=== PATIENT | female | born 1960 | race African-American/Black ===

== ENCOUNTER 2016-05-28 02:49 | Emergency (ER) | payer MEDICAID ==
[~2016-05-28] VITALS: Ht 167.6 cm; Wt 104.3 kg
[2016-05-28 08:14] VITALS: BP 124/80
[2016-05-28] MEDS ORDERED: KETOROLAC TROMETH 60MG/2ML VIAL IM ONE (08:30)
== END 2016-05-28 09:17 | disposition home or self-care (01) ==
LOC: ER 02:55
DX: S39.012A Strain of muscle, fascia and tendon of lower back, initial encounter (principal); S00.83XA Contusion of other part of head, initial encounter; F17.210 Nicotine dependence, cigarettes, uncomplicated; V43.62XA Car passenger injured in collision with other type car in traffic accident, initial encounter; Y93.89 Activity, other specified; Y99.9 Unspecified external cause status; Y92.89 Other specified places as the place of occurrence of the external cause
CPT/HCPCS: 70486; 72131; 96372; 99284; J1885

== ENCOUNTER 2023-06-18 12:07 | Emergency (ER) | payer MEDICAID ==
[~2023-06-18] VITALS: Ht 167.6 cm; Wt 104.5 kg
[2023-06-18 12:10] VITALS: BP 140/82; RESP 18; O2SAT 95
[2023-06-18 12:19] VITALS: PULSE 82
[2023-06-18 12:46] LABS: Basophils # (auto) 0 10 ^3/uL (0-0.2); Basophils % (auto) 0.7 % (0.0-2.0); Eosinophils # (auto) 0 10 ^3/uL (0-0.8); Hematocrit 40.3 % (36.0-46.0); Hemoglobin 13.3 g/dL (12.2-16.2); Lymphocytes # (auto) 1.9 10 ^3/uL (0.4-5.4); Lymphocytes % (auto) 39.7 % (10.0-50.0); Mean Corpuscular Hemoglobin 31.1 pg (28.0-32.0); Mean Corpuscular Hgb Conc. 32.9 g/dL (32.0-36.0); Mean Corpuscular Volume 94.5 fL (80.0-100.0); Monocytes # (auto) 0.4 10 ^3/uL (0-1.3); Neutrophils # (auto) 2.3 10 ^3/uL (1.6-8.6); Neutrophils % (auto) 49.6 % (37.0-80.0); Red Blood Cells 4.27 10^6/uL (4.0-5.20); Red Cell Distribution Width 14.9 % (11.8-14.3); White Blood Cell 4.7 10^3/uL (4.4-10.8)
[2023-06-18 12:58] LABS: Alanine Aminotransferase 32 U/L (7-40); Albumin 4.2 g/dL (3.2-4.8); Alkaline Phosphatase 53 U/L (46-116); Anion Gap 7 (5-15); Aspartate Aminotransferase 31 U/L (13-40); BUN/Creatinine Ratio 15.6 (10.0-20.0); Bilirubin, Total 0.4 mg/dL (0.2-1.0); Blood Urea Nitrogen 14 mg/dL (9-23); Calcium 9.5 mg/dL (8.5-10.1); Carbon Dioxide 27 mmol/L (20-30); Chloride 108 mmol/L (98-107); Glucose 92 mg/dL (74-106); Potassium 3.7 mmol/L (3.5-5.1); Sodium 142 mmol/L (136-145); Total Protein 6.9 g/dL (5.7-8.2)
== END 2023-06-18 14:39 | disposition left against medical advice (07) ==
LOC: ER 12:07
DX: M54.59 Other low back pain (principal); R06.02 Shortness of breath; R07.89 Other chest pain; Z53.21 Procedure and treatment not carried out due to patient leaving prior to being seen by health care provider; W01.0XXA Fall on same level from slipping, tripping and stumbling without subsequent striking against object, initial encounter; Y93.89 Activity, other specified; Y92.89 Other specified places as the place of occurrence of the external cause; Y99.8 Other external cause status
CPT/HCPCS: 36415; 71045; 80053; 84484; 85025; 93005

== ENCOUNTER 2023-11-04 08:41 | Emergency (ER) | payer MEDICAID ==
[~2023-11-04] VITALS: Ht 167.6 cm; Wt 97.0 kg
[2023-11-04 09:42] VITALS: TEMP 98
[2023-11-04] MEDS: cefTRIAXone SOD 1,000 MG VL IM ONE (10:16)
[2023-11-04] MEDS: ONDANSETRON ODT 4 MG TAB PO ONE (10:16)
[2023-11-04] MEDS: MEPERIDINE HCL (50 MG/ML) 1 ML VIAL IM ONE (10:16)
[2023-11-04 10:59] VITALS: BP 138/91; PULSE 87; RESP 20; O2SAT 97
== END 2023-11-04 11:26 | disposition left against medical advice (07) ==
LOC: ER 08:41
DX: S22.089A Unspecified fracture of T11-T12 vertebra, initial encounter for closed fracture (principal); S30.1XXA Contusion of abdominal wall, initial encounter; M54.50 Low back pain, unspecified; F17.210 Nicotine dependence, cigarettes, uncomplicated; V49.9XXA Car occupant (driver) (passenger) injured in unspecified traffic accident, initial encounter; Y93.89 Activity, other specified; Y92.89 Other specified places as the place of occurrence of the external cause; Y99.8 Other external cause status
CPT/HCPCS: 74176; 96372; 99285; J0696; J2175; Q0162

== ENCOUNTER 2023-11-17 10:02 | Emergency (ER) | payer MEDICAID ==
[~2023-11-17] VITALS: Ht 167.6 cm; Wt 92.9 kg
[2023-11-17] MEDS: OXYCODONE W/ ACETAMINOPHEN 5/325MG TABLET PO ONE (10:55)
[2023-11-17 10:56] VITALS: BP 145/100; PULSE 99; RESP 18; TEMP 97.5; O2SAT 96
== END 2023-11-17 11:03 | disposition home or self-care (01) ==
LOC: ER 10:02
DX: S61.411D Laceration without foreign body of right hand, subsequent encounter (principal); F17.210 Nicotine dependence, cigarettes, uncomplicated; Z48.00 Encounter for change or removal of nonsurgical wound dressing; X58.XXXD Exposure to other specified factors, subsequent encounter

== ENCOUNTER 2023-11-27 17:12 | Emergency (ER) | payer MEDICAID ==
[~2023-11-27] VITALS: Ht 167.6 cm; Wt 93.0 kg
[2023-11-27 18:28] VITALS: BP 122/86; PULSE 104; RESP 16; TEMP 97.4; O2SAT 97
[2023-11-27] MEDS: OXYCODONE W/ ACETAMINOPHEN 5/325MG TABLET PO ONE (18:59)
== END 2023-11-27 20:16 | disposition home or self-care (01) ==
LOC: ER 17:12
DX: S61.411D Laceration without foreign body of right hand, subsequent encounter (principal); M54.6 Pain in thoracic spine; F17.210 Nicotine dependence, cigarettes, uncomplicated; Z48.00 Encounter for change or removal of nonsurgical wound dressing; V89.2XXD Person injured in unspecified motor-vehicle accident, traffic, subsequent encounter

== ENCOUNTER 2024-02-08 08:31 | Emergency (ER) | payer MEDICAID ==
[~2024-02-08] VITALS: Ht 167.6 cm; Wt 85.2 kg
[2024-02-08] MEDS: SODIUM CHLORIDE 0.9% 1,000 ML IV ONE (10:25)
[2024-02-08 10:30] VITALS: TEMP 98.9; O2SAT 100
[2024-02-08] MEDS: METOCLOPRAMIDE HCL 5MG/ml INJ 2ml VIAL IV ONE (10:32)
[2024-02-08 11:10] LABS: Basophils # (auto) 0 10 ^3/uL (0-0.2); Basophils % (auto) 0.7 % (0.0-2.0); Eosinophils # (auto) 0 10 ^3/uL (0-0.8); Eosinophils % (auto) 0.8 % (0.0-7.0); Hematocrit 41.1 % (36.0-46.0); Hemoglobin 13.9 g/dL (12.2-16.2); Lymphocytes # (auto) 1.2 10 ^3/uL (0.4-5.4); Lymphocytes % (auto) 39.3 % (10.0-50.0); Mean Corpuscular Hemoglobin 30.9 pg (28.0-32.0); Mean Corpuscular Hgb Conc. 33.9 g/dL (32.0-36.0); Mean Corpuscular Volume 91.3 fL (80.0-100.0); Monocytes # (auto) 0.4 10 ^3/uL (0-1.3); Monocytes % (auto) 13.1 % (0.0-12.0); Neutrophils # (auto) 1.4 10 ^3/uL (1.6-8.6); Neutrophils % (auto) 46.1 % (37.0-80.0); Nucleated Red Blood Cells % 0.3 %; Platelet Count (auto) 271 10^3/uL (140-450); Red Blood Cells 4.51 10^6/uL (4.0-5.20); Red Cell Distribution Width 17.3 % (11.8-14.3); White Blood Cell 3.1 10^3/uL (4.4-10.8)
[2024-02-08 11:15] LABS: Alanine Aminotransferase 23 U/L (7-40); Albumin 4.7 g/dL (3.2-4.8); Alkaline Phosphatase 72 U/L (46-116); Anion Gap 5 (5-15); Aspartate Aminotransferase 24 U/L (13-40); BUN/Creatinine Ratio 11.6 (10.0-20.0); Bilirubin, Total 0.7 mg/dL (0.2-1.0); Blood Urea Nitrogen 10 mg/dL (9-23); Calcium 10.3 mg/dL (8.7-10.4); Carbon Dioxide 28 mmol/L (20-30); Chloride 104 mmol/L (98-107); Glucose 98 mg/dL (74-106); Lipase 56 U/L (12-53); Potassium 3.7 mmol/L (3.5-5.1); Sodium 137 mmol/L (136-145)
[2024-02-08 11:16] LABS: Total Protein 7.9 g/dL (5.7-8.2)
[2024-02-08] MEDS: MORPHINE SULFATE INJ 2 MG/ml SYRG IV ONE (11:36)
[2024-02-08] MEDS: ONDANSETRON HCL 4 MG/2 ML VIAL IV ONE (11:39)
[2024-02-08 12:20] VITALS: BP 148/78; PULSE 88; RESP 18
[2024-02-08 12:29] LABS: Urine Bacteria FEW /hpf (None Seen); Urine Blood Negative /uL (Negative); Urine Clarity Turbid (Clear); Urine Color Yellow (Yellow); Urine Mucus FEW (None Seen); Urine Protein, UAD 1+ (Negative); Urine Specific Gravity 1.023 (1.001-1.035); Urine Urobilinogen Normal (Negative); Urine WBC 18 /hpf (0 - 5)
== END 2024-02-08 12:26 | disposition home or self-care (01) ==
LOC: ER 08:31
DX: S39.012D Strain of muscle, fascia and tendon of lower back, subsequent encounter (principal); K52.9 Noninfective gastroenteritis and colitis, unspecified; N83.202 Unspecified ovarian cyst, left side; N83.201 Unspecified ovarian cyst, right side; D25.9 Leiomyoma of uterus, unspecified; F17.210 Nicotine dependence, cigarettes, uncomplicated; Z79.899 Other long term (current) drug therapy; X58.XXXD Exposure to other specified factors, subsequent encounter
CPT/HCPCS: 36415; 80053; 81001; 83690; 83735; 85025; 96361; 96374; 96375; 99284; J2270; J2405; J2765; J7030

== ENCOUNTER 2024-05-10 20:47 | Emergency (ER) | payer MEDICAID | END 2024-05-10 22:13 | disposition left against medical advice (07) | LOC: ER 20:47 | DX: Z04.3 Encounter for examination and observation following other accident (principal); Z53.21 Procedure and treatment not carried out due to patient leaving prior to being seen by health care provider ==

== ENCOUNTER 2024-12-10 05:58 | Emergency (ER) | payer MEDICAID, OTHER ==
[~2024-12-10] VITALS: Ht 167.6 cm; Wt 92.0 kg
[2024-12-10 07:04] VITALS: BP 125/97; PULSE 87; RESP 18; TEMP 97.9; O2SAT 98
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
[2024-12-10] MEDS ORDERED: CYCL-837 PO (08:21)
== END 2024-12-10 10:27 | disposition home or self-care (01) ==
LOC: ER 05:58
DX: M25.562 Pain in left knee (principal); Z98.890 Other specified postprocedural states; V89.2XXA Person injured in unspecified motor-vehicle accident, traffic, initial encounter; Y93.89 Activity, other specified; Y92.488 Other paved roadways as the place of occurrence of the external cause; Y99.8 Other external cause status
CPT/HCPCS: 72100

== ENCOUNTER 2025-01-20 10:08 | Emergency (ER) | payer OTHER ==
[~2025-01-20] VITALS: Ht 167.6 cm; Wt 90.0 kg
[~2025-01-20 10:08] MED LIST: CYCL-837 PO
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
[2025-01-20] MEDS: HYDROcodone-ACET 10/325MG TAB PO ONE (11:11)
--- NOTE | 2025-01-20 11:42 | DVH ---
XY LUMBAR SPINE 3 VIEW, HISTORY: pain COMPARISON: XY LUMBAR SPINE 3 VIEW on DOS: 12/10/24 TECHNICAL DATA: Frontal and lateral views were obtained of the lumbar spine . FINDINGS: There are 5 lumbar type vertebral bodies. Lumbar curvature is within normal limits. Similar mild ante rolisthesis of L4 and L5. Vertebral body heights are maintained. Disk heights are degenerative. The f acet joints appear degenerative. The sacroiliac joints are symmetric. Paraspinal soft tissues are wit hin normal limits. Similar chronic compression of T12, severe IMPRESSION: Similar mild anterolisthesis of L4 and L5. No acute fracture or dislocation of the lumbar spine.
[2025-01-20 15:15] LABS: Urine Protein, UAD Negative (Negative)
[2025-01-20] MEDS ORDERED: HYDR-4902 PO (15:22)
[2025-01-20] MEDS: methylPREDNISolone SOD SUCC 125 MG/2 ML VL IM ONE (15:45)
[2025-01-20 16:06] VITALS: BP 139/73; PULSE 87; RESP 15; TEMP 98.3; O2SAT 99
== END 2025-01-20 16:07 | disposition home or self-care (01) ==
LOC: ER 10:08
DX: S33.5XXA Sprain of ligaments of lumbar spine, initial encounter (principal); Z79.899 Other long term (current) drug therapy; X58.XXXA Exposure to other specified factors, initial encounter; Y93.89 Activity, other specified; Y92.89 Other specified places as the place of occurrence of the external cause; Y99.8 Other external cause status
CPT/HCPCS: 72100; 81001; 96372; 99284; J2919

== ENCOUNTER 2025-03-29 15:41 | Emergency (ER) | payer OTHER ==
[~2025-03-29] VITALS: Ht 167.6 cm; Wt 90.1 kg
[~2025-03-29 15:41] MED LIST changes: +HYDR-4902 PO
--- NOTE | 2025-03-29 16:46 | ED.PDOC ---
History of Present Illness HPI Comments 64-year-old female presents to the ER with diffuse abdominal pain for the past 24 hours associated with N/V/D and chills. Denies any other symptoms at this time. Denies fever, SOB, CP. No other associated symptoms, modifiers, recent injuries or sick contacts present at this time. Chief Complaint: Abdominal Pain Time Seen by MD: 16:45 Primary Care Provider: OOA Reviewed Notes: Nurses Notes, Medications, Allergies Allergies: Coded Allergies: NO KNOWN ALLERGIES (Unverified , 05/28/16) Home Meds Active Scripts Hydrocodone-Acetaminophen (Hydrocodone Bitartrate/AC 5-325 mg) 1 Tab Tab, 1 TAB PO Q8HP PRN for 7 Days, #21 TAB Prov:THOMAS LOPEZ MD 01/20/25 Cyclobenzaprine Hcl (Cyclobenzaprine Hcl) 5 Mg Tab, 1 TAB PO QHSP PRN for 10 Days, #10 TAB 0 Refills Prov:KEARA POWELL GOLF COURSE STARTER 12/10/24 Information Source: Patient Mode of Arrival: Ambulatory Severity: Moderate Timing: Hours Duration: Since onset, Hours Prehospital treatment: None Past Medical History PAST MEDICAL HISTORY: Denies Surgical History: Cholecystectomy SCREENPLAY WRITER History: No Pertinent SCREENPLAY WRITER History Family History Family History: Reviewed,noncontributory to illness, Unknown Family History (Other): Arthritis Social History Smoker: Unknown Alcohol: Unknown Drugs: Unknown Lives In: Home Constitutional: reports: chills; denies: diaphoresis, fatigue, fever, malaise, sweats, weakness, others EENTM: denies: blurred vision, double vision, ear bleeding, ear discharge, ear drainage, ear pain, ear ringing, eye pain, eye redness, hearing loss, mouth pa in, mouth swelling, nasal discharge, nose bleeding, nose congestion, nose pain, photophobia, tearing, throat pain, throat swelling, voice changes, others Respiratory: denies: cough, hemoptysis, orthopnea, SOB at rest, shortness of breath, SOB with excertion, stridor, wheezing, others Cardiovascular: denies: chest pain, dizzy spells, diaphoresis, Dyspnea on exertion, edema, irregular heart beat, left arm pain, lightheadedness, palpitations, PND, syncope, others Gastrointestinal: reports: abdominal pain, diarrhea, nausea, vomiting; denies: abdomen distended, blood streaked bowels, constipated, dysphagia, difficulty swallowing, hematemesis, melena, poor appetite, poor fluid intake, rectal bleeding, rectal pain, others Genitourinary: denies: abnormal vagina bleeding, burning, dyspareunia, dysuria, flank pain, frequency, hematuria, incontinence, pain, , vagina discharge, urgency, others Neurological: denies: dizziness, fainting, headache, left sided numbness, left sided weakness, numbness, paresthesia, pre-existing deficit, right sided numbness, right sided weakness, seizure, speech problems, tingling, tremors, weakness, others Musculoskeletal: denies: back pain, gout, joint pain, joint swelling, muscle pain, muscle stiffness, neck pain, others Integumetry: denies: bruises, change in color, change in hair/nails, dryness, laceration, lesions, lumps, rash, wounds, others Allergic/Immunocompromised: denies: Difficulty Healing, Frequent Infections, Hives, Itching, others Hematologic/Lymphatic: denies: anemia, blood clots, easy bleeding, easy bruising, swollen glands, others Endocrine: denies: excessive hunger, excessive sweating, excessive thirst, excessive urination, flushing, intolerance to cold, intolerance to heat, unexplained weight gain, unexplained weight loss, others Psychiatric: denies: anxiety, bipolar disorder, depression, hopeless, panic disorder, schizophrenia, sleepless, suicidal, others All Other Systems: Reviewed and Negative Physical Exam General Appearance: No Apparent Distress, Normal HEENT: Normal ENT Inspection, Pharynx Normal, TMs Normal Neck: Full Range of Motion, Non-Tender, Normal, Normal Inspection Respiratory: Chest Non-Tender, Lungs Clear, No Accessory Muscle Use, No Respira tory Distress, Normal Breath Sounds Cardiovascular: No Edema, No JVD, No Murmur, No Gallop, Normal Peripheral Pulses, Regular Rate/Rhythm Breast Exam: Deferred Gastrointestinal: Diffuse, No Pulsatile Mass, Normal Bowel Sounds, Soft Genitalia: Deferred Pelvic: Deferred Rectal: Deferred Extremities: No calf tenderness, Normal capillary refill, Normal inspection, Normal range of motion, Non-tender, No pedal edema Musculoskeletal : Apperance: Normal Neurologic: Alert, credit department manager II-XII nml as Tested, No Motor Deficits, Normal Affect, Normal Mood, No Sensory Deficits Cerebellar Function: Normal Reflexes: Normal Skin: Dry, Normal Color, Warm Lymphatic: No Adenopathy Was a procedure done? Was a procedure done?: No Differential Dx Considerations may include: Gastroenteritis, abdominal pain, bowel obstruction, pancreatitis, appendicitis X-Ray, Labs, Meds, VS Vital Signs Date Time Temp Pulse Resp B/P (MAP) Pulse Ox O2 Delivery O2 Flow Rate FiO2 03/29/25 18:41 97.4 120 16 152/101 (118) 96 97.4 03/29/25 15:43 97.6 90 18 139/102 97 97.6 Lab Test 03/29/25 16:57 Range/Units White Blood Count 2.5 L 4.4-10.8 10^3/uL Red Blood Count 3.37 L 4.0-5.20 10^6/uL Hemoglobin 11.9 L 12.2-16.2 g/dL Hematocrit 35.3 L 36.0-46.0 % Mean Corpuscular Volume 104.9 H 80.0-100.0 fL Mean Corpuscular Hemoglobin 35.4 H 28.0-32.0 pg Mean Corpuscular Hemoglobin Concent 33.7 32.0-36.0 g/dL Red Cell Distribution Width 16.4 H 11.8-14.3 % Platelet Count 267 140-450 10^3/uL Mean Platelet Volume 7.6 6.9-10.8 fL Neutrophils (%) (Auto) 39.8 37.0-80.0 % Lymphocytes (%) (Auto) 52.0 H 10.0-50.0 % Monocytes (%) (Auto) 6.5 0.0-12.0 % Eosinophils (%) (Auto) 0.4 0.0-7.0 % Basophils (%) (Auto) 1.3 0.0-2.0 % Neutrophils # (Auto) 1.0 L 1.6-8.6 10 ^3/uL Lymphocytes # (Auto) 1.3 0.4-5.4 10 ^3/uL Monocytes # (Auto) 0.2 0-1.3 10 ^3/uL Eosinophils # (Auto) 0 0-0.8 10 ^3/uL Basophils # (Auto) 0 0-0.2 10 ^3/uL Nucleated Red Blood Cells 0.5 % Sodium Level 140 136-145 mmol/L Potassium Level 4.5 3.5-5.1 mmol/L Chloride Level 105 98-107 mmol/L Carbon Dioxide Level 22 20-31 mmol/L Anion Gap 13 5-15 Blood Urea Nitrogen 13 9-23 mg/dL Creatinine 1.41 H 0.550-1.02 mg/dL Glomerular Filtration Rate Calc 42 >90 mL/min BUN/Creatinine Ratio 9.2 L 10.0-20.0 Serum Glucose 80 74-106 mg/dL Calcium Level 9.0 8.7-10.4 mg/dL Total Bilirubin 0.7 0.2-1.0 mg/dL Aspartate Amino Transferase (AST) 564 H 13-40 U/L Alanine Aminotransferase (ALT) 109 H 7-40 U/L Alkaline Phosphatase 83 46-116 U/L Total Protein 7.7 5.7-8.2 g/dL Albumin 4.1 3.2-4.8 g/dL Lipase 36 12-53 U/L X-Ray, Labs, Meds, VS Comment Imaging was reviewed by this provider, there is no obvious pathological or acute disease process. Pending radiology review Labs were reviewed by this provider, no abnormalities Vital signs reviewed by this provider, clinically stable Time of 1ST Reevaluation: 17:15 Reevaluation 1ST: Unchanged Patient Education/Counseling: Diagnosis, Treatment, Prognosis, Need For Follow Up (Follow up with PCP in the next 24-48 hours. Return to the emergency department if symptoms worsen.) Family Education/Counseling: No Family Present SEPSIS Sepsis Screen Date sepsis recognized/suspect: Mar 29, 2025 Time Sepsis recognized/suspect: 1543 Recent Procedure: No On Antibiotic Therapy: No Respiratory Rate >20: No Heart Rate >90: No Temp<36 C (96.8 F) or >38.3 C: No SBP <90 or MAP <65 mmHG: No New Acute Mental Status Change: No Is the patient on CPAP, BIPAP,: No Physician Orders Urinalysis (03/29/25 16:40) Ct Ab Pel Wo Con-No Oral Or Iv (03/29/25 16:40) Vital Signs Date Time Temp Pulse Resp B/P (MAP) Pulse Ox O2 Delivery O2 Flow Rate FiO2 03/29/25 18:41 97.4 120 16 152/101 (118) 96 97.4 03/29/25 15:43 97.6 90 18 139/102 97 97.6 Laboratory Tests Test 03/29/25 16:57 White Blood Count 2.5 10^3/uL (4.4-10.8) L Departure 1 Departure Time of Disposition: 19:19 Impression: Primary Impression: Gastroenteritis Disposition: 01 HOME / SELF CARE / HOMELESS Condition: Fair e-Prescriptions Ondansetron Odt 4MG Tab (ZOFRAN PO) 4 Mg Tb 4 MG PO TID PRN, #20 TAB ODT TAB-DISSOLVE IN MOUTH, THEN SWALLOW Prov: HORACIO LUCERO 03/29/25 Discharged With: Self Critical Care Note Critical Care Time?: No Stability Stability form required: No Heart Score Heart Score: Heart Score Response (Comments) Value History N/A 0 EKG N/A 0 Age N/A 0 Risk Factors N/A 0 Troponin N/A 0 Total 0 I personally scribed for HORACIO LUCERO ([email or web address]) on 03/29/25 at 16:46. Electronically submitted by Macario Light ([email or web address]). HORACIO LUCERO Mar 29, 2025 16:46
[2025-03-29 17:28] LABS: Hematocrit 35.3 % (36.0-46.0); Hemoglobin 11.9 g/dL (12.2-16.2)
[2025-03-29 17:29] LABS: Mean Corpuscular Hemoglobin 35.4 pg (28.0-32.0); Mean Corpuscular Volume 104.9 fL (80.0-100.0); Nucleated Red Blood Cells % 0.5 %
--- NOTE | 2025-03-29 17:44 | DVH ---
EXAM DESCRIPTION: CT CT AB PEL WO CON-NO ORAL OR IV CLINICAL HISTORY: abd pain COMPARISON: CT CT AB PEL WO CON-NO ORAL OR IV on DOS: 11/04/23 TECHNIQUE: CT abdomen and pelvis without IV contrast was performed. Coronal and sagittal MPR images were generated.CTDI/ DLP = 18.42 / 974.15 Dose reduction technique with one or more of the following methods was performed: Automated exposure control, adjustment of the mA and/or kV according to patient size, use of iterative reconstruction technique FINDINGS: Lower chest: Clear lung bases. Liver: Homogenous in attenuation. . Biliary: Status post cholecystectomy. No biliary ductal dilatation. Pancreas: No fat stranding or focal lesion. Spleen: Normal in size.. Adrenal glands: No nodularity. Kidneys: No nephrolithiasis. No hydroureteronephrosis. . Bladder: No bladder wall thickening. Reproductive organs: Normal. Bowel: No bowel wall thickening or dilatation. Colonic diverticulosis without evidence of diverticulitis. Normal appendix.. Large hiatal hernia. Peritoneum: No free fluid. No free air. Vessels: Normal caliber abdominal aorta. Mild atherosclerotic calcifications.. Lymph nodes: No suspicious lymph nodes. Soft tissues: Unremarkable. . Osseous structures: Severe compression fracture of the T12 vertebral body, which demonstrates increased height loss since 11/04/23 and 5 mm retropulsion. No suspicious osseous lesions. Degenerative changes of the visualized thoracolumbar spine. IMPRESSION: 1. Severe compression fracture of the T12 vertebral body, with increased height loss since 11/04/23 and 5 mm of retropulsion. 2. Colonic diverticulosis without evidence of diverticulitis. 3. Large hiatal hernia.
[2025-03-29 17:47] LABS: Albumin 4.1 g/dL (3.2-4.8); Alkaline Phosphatase 83 U/L (46-116); Anion Gap 13 (5-15); BUN/Creatinine Ratio 9.2 (10.0-20.0); Blood Urea Nitrogen 13 mg/dL (9-23); Calcium 9.0 mg/dL (8.7-10.4); Carbon Dioxide 22 mmol/L (20-31); Chloride 105 mmol/L (98-107); Glucose 80 mg/dL (74-106); Lipase 36 U/L (12-53); Potassium 4.5 mmol/L (3.5-5.1); Sodium 140 mmol/L (136-145); Total Protein 7.7 g/dL (5.7-8.2)
[2025-03-29 17:48] LABS: Bilirubin, Total 0.7 mg/dL (0.2-1.0)
[2025-03-29 17:51] LABS: Alanine Aminotransferase 109 U/L (7-40)
[2025-03-29 18:41] VITALS: BP 152/101; PULSE 120; RESP 16; TEMP 97.4; O2SAT 96
[2025-03-29] MEDS ORDERED: MAALOX PLUS or MAALOX 30 ML PO ONE (18:45)
[2025-03-29] MEDS ORDERED: KETOROLAC TROMETH 30 MG/ML 1ML VIAL IM ONE (18:45)
[2025-03-29] MEDS ORDERED: LIDOCAINE VISCOUS 2% 15ML UD MT ONE (18:45)
[2025-03-29] MEDS ORDERED: ZOFR4T PO (19:20)
== END 2025-03-29 20:56 | disposition home or self-care (01) ==
LOC: ER 15:42
DX: K52.9 Noninfective gastroenteritis and colitis, unspecified (principal); Z90.49 Acquired absence of other specified parts of digestive tract
CPT/HCPCS: 36415; 74176; 80053; 83690; 85025